=== PATIENT | male | born 1975 | race Caucasian/White ===

== ENCOUNTER 2016-08-11 03:52 | Emergency (ER) | payer OTHER ==
--- NOTE | ~2016-08-11 | CR142 ---
[facility] A Service of [facility] & [facility] RADIOLOGY TEXT RESULTS PATIENT: MOHIT MATTHEW LOCATION: [facility] : 75 UNIT #: [id number] AGE: [address]: Michael Jarrell MD SEX: M ORDER DR: [id number] [facility] [address] [place], [place] [address] [id number] E MR#: [id number] Acc #: [id number] NAME: MOHIT MATTHEW : 1975 SEX: M STUDY DATE/TIME: 08/11/2016 02:48 UNIT: [facility] ROOM: STUDY DESCRIPTION: CR Hand Min 3 Views Rt Attending Physician: Michael Jarrell M.D. Ordering Physician: Ed Ryan Doty M.D. Primary Care Physician: No Primary Care Physician MEDICAL IMAGING REPORT This report is preliminary unless electronic signature is present EXAM Right hand, 08/11 at 02:48. INDICATIONS Hand pain after punching a wall today. FINDINGS 4 views of the right hand are compared with 06/27/2010. There is an old fifth metacarpal boxer fracture. No acute fracture or malalignment is seen. IMPRESSION Old fifth metacarpal boxer fracture. No acute findings. Dictated by... Gabriel Damon Jr., M.D. THIS IS AN ELECTRONICALLY VERIFIED REPORT Gabriel Damon Jr., M.D. at 08/11/2016 12:38 PM LILIYA/corby TD: 08/11/2016 09:50 JOB #: [id number] MEDICAL IMAGING REPORT Page 1 of 1 COPY
--- NOTE | ~2016-08-11 | CR282 ---
[facility] A Service of [facility] & [facility] RADIOLOGY TEXT RESULTS PATIENT: MOHIT MATTHEW LOCATION: [facility] : 75 UNIT #: [id number] AGE: [address]: Michael Jarrell MD SEX: M ORDER DR: [id number] [facility] [address] [place], [place] [address] [id number] E MR#: [id number] Acc #: [id number] NAME: MOHIT MATTHEW : 1975 SEX: M STUDY DATE/TIME: 08/11/2016 0250 UNIT: [facility] ROOM: STUDY DESCRIPTION: CR Wrist Min 3 View Rt Attending Physician: iMchael Jarrell M.D. Ordering Physician: Ed Ryan Doty M.D. Primary Care Physician: No Primary Care Physician MEDICAL IMAGING REPORT This report is preliminary unless electronic signature is present EXAM Right wrist, 08/11 at 0250. INDICATION Wrist pain and hand pain after punching a wall today. FINDINGS 3 views of the wrist were obtained. No fracture or malalignment is identified. IMPRESSION Negative right wrist. Dictated by... Gabriel Damon Jr., M.D. THIS IS AN ELECTRONICALLY VERIFIED REPORT Gabriel Damon Jr., M.D. at 08/11/2016 12:38 PM LILIYA/antolin TD: 08/11/2016 09:52 JOB #: [id number] MEDICAL IMAGING REPORT Page 1 of 1 COPY
[~2016-08-11 03:52] MED LIST: FLEXERIL10 M1 PO; HYDROCODON-ACE1 EAC1 PO; NO MEDICATIONS; PHENERGAN DM1 ML PO; VOLTAREN75 MG PO; ZITHROMAX PO
== END 2016-08-11 03:55 | disposition home or self-care (01) ==
LOC: CED 03:52
DX: S63.511A Sprain of carpal joint of right wrist, initial encounter (principal); F20.9 Schizophrenia, unspecified; Y92.009 Unspecified place in unspecified non-institutional (private) residence as the place of occurrence of the external cause; W22.8XXA Striking against or struck by other objects, initial encounter
CPT/HCPCS: 29125; 73110; 73130; 99283